=== PATIENT | male | born 1985 ===

== ENCOUNTER 2017-03-27 08:55 | Outpatient (CLI) | payer BC | END 2017-03-27 23:59 | disposition home or self-care (01) | LOC: XRAY 08:55 | PROVIDERS: ATTEND Internal Medicine | DX: R74.0 Nonspecific elevation of levels of transaminase and lactic acid dehydrogenase [LDH] (principal); R79.89 Other specified abnormal findings of blood chemistry | CPT/HCPCS: 71046; 76700 ==